=== PATIENT | male | born 1990 | race Two or more races ===

== ENCOUNTER 2023-04-09 16:49 | Emergency (ER) | payer OTHER ==
[~2023-04-09] VITALS: Ht 172.7 cm; Wt 74.8 kg
[2023-04-09] MEDS ORDERED: GUAIFENESIN/DEXTROMETHORPHAN 100 MG/5 ML ML PO ONE (17:45)
[2023-04-09 18:07] LABS: HEMATOCRIT 38.5 % (39.0-48.0); HEMOGLOBIN 13.4 g/dL (13-16.00); MEAN CELL VOLUME 92.7 fL (80.0-100.00); MEAN CORPUSCULAR HEMOGLOBIN 32.4 pg (27.00-32.0); MEAN CORPUSCULAR HGB CONC 34.9 g/dl (32.0-36.0); PLATELET COUNT 217 K/uL (150-450); RED BLOOD COUNT 4.15 M/uL (4.00-6.00); RED CELL DISTRIBUTION WIDTH 12.6 % (11.5-14.5)
[2023-04-09 18:59] LABS: ABG PH 7.387 (7.35-7.45); ABG PO2 86.2 mmHg (80-100); ABG pCO2 45.4 mmHg (35-45); BASE EXCESS 1.2 mmol/l; BICARBONATE 26.7 mmol/l (23-25); SaO2 96.4 %; Tco2 28.1 mmol/l
[2023-04-09 19:00] LABS: allen test SATISFACTORY; o2 21 %; puncture site RADIAL LEFT
[2023-04-09] MEDS ORDERED: MEDROLPACK PO (19:56)
[2023-04-09] MEDS ORDERED: SINGULAIR10 MG PO (19:56)
[2023-04-09] MEDS ORDERED: LEVOFLOXACIN750 MG PO (19:56)
[2023-04-09] MEDS ORDERED: MUCINEX1200 MG PO (19:56)
[2023-04-09] MEDS ORDERED: IPRATROPIU0.2 MG/1 M IH (19:56)
[2023-04-09] MEDS ORDERED: BENZONATATE200 M1 PO (19:56)
[2023-04-09] MEDS ORDERED: CEFTRIAXONE SODIUM 1,000 MG VIAL IM ONE (20:00)
[2023-04-09] MEDS ORDERED: METHYLPREDNISOLONE SOD SUCC 125 MG VIAL IM ONE (20:00)
== END 2023-04-09 20:44 ==
LOC: ER 16:49
PROVIDERS: Nurse Practitioner Family
DX: J98.8 Other specified respiratory disorders (principal); Z20.822 Contact with and (suspected) exposure to COVID-19